=== PATIENT | female | born 1945 | race Caucasian/White ===

== ENCOUNTER 2016-09-05 07:44 | Day surgery (SDC) | payer OTHER ==
[~2016-09-05] VITALS: Ht 170.2 cm; Wt 96.6 kg
[~2016-09-05 07:44] MED LIST: CEFAZOLIN SOD 1 GM/ ISO 50 ML PREMIX IV ONE
[2016-09-05 08:11] VITALS: O2SAT 96
[2016-09-05] MEDS ORDERED: LR 1,000 ML IV SCH (13:31)
[2016-09-05] MEDS ORDERED: METOCLOPRAMIDE HCL 10 MG/2 ML VIAL IVP PRN (13:45)
[2016-09-05] MEDS ORDERED: MORPHINE 4 MG/ML INJ. SYRINGE IVP PRN ×3 (13:45)
[2016-09-05] MEDS ORDERED: D5/0.45 NS 1,000 ML IV SCH (13:51)
[2016-09-05] MEDS ORDERED: fentaNYL CITRATE/PF 100 MCG/2 ML AMP ONE (14:00)
[2016-09-05] MEDS ORDERED: HYDROmorphone 1 MG INJ. 1 MG/ML AMPUL IVP PRN (14:00)
[2016-09-05] MEDS ORDERED: HYDROcodone/ACETAMIN 5-325 MG TAB (NORCO/ VICODIN) PO PRN ×2 (14:00)
[2016-09-05 15:04] VITALS: BP 141/71; PULSE 76; RESP 16
[2016-09-05] MEDS ORDERED: HYDROcodone/ACETAMIN 5-325 MG TAB (NORCO/ VICODIN) ONE (15:04)
[2016-09-05] MEDS ORDERED: METOCLOPRAMIDE HCL 10 MG/2 ML VIAL ONE (15:44)
[2016-09-05] MEDS ORDERED: SEVOFLURANE 15 MIN GAS INH ONE (16:00)
[2016-09-05] MEDS ORDERED: ROCURONIUM BROMIDE 10 MG/ML (ZEMURON) ONE (16:00)
[2016-09-05] MEDS ORDERED: ONDANSETRON HCL 4 MG/2 ML VIAL ONE (16:00)
[2016-09-05] MEDS ORDERED: LR 1,000 ML IV.SOLN IV ONE (16:00)
[2016-09-05] MEDS ORDERED: PROPOFOL 200MG/ 20ML VIAL (DIPRIVAN) IV ONE (16:00)
[2016-09-05] MEDS ORDERED: WATER FOR IRRIGATION,STERILE 1,000 ML IRRIG.SOLN IR ONE (16:00)
[2016-09-05] MEDS ORDERED: BUPIVACAINE /PF 0.25% 30 ML VIAL INJ ONE (16:00)
[2016-09-05] MEDS ORDERED: MIDAZOLAM HCL 5 MG/5 ML VIAL ONE (16:00)
[2016-09-05] MEDS ORDERED: CEFAZOLIN 1 GM IVPB PREMIX 50 ML IV ONE (16:00)
== END 2016-09-05 16:37 | disposition home or self-care (01) ==
LOC: SDS 07:44 → SMU 07:44 → EDSTATUS 09:45 → SDS 16:37
PROVIDERS: ATTEND Colon & Rectal Surgery
DX: C50.912 Malignant neoplasm of unspecified site of left female breast (principal)
CPT/HCPCS: 19281; 19301; 38525; 78195; 88305; 88307; 88334; 88341; 88342; A9541; J0690; J2250; J2405; J2704; J2765; J3010; J3490; J7120; 19081; 76098-TC